=== PATIENT | male | born 1945 | race Native Hawaiian/Other Pacific Islander ===

== ENCOUNTER 2017-11-12 19:56 | Emergency (ER) | payer MEDICARE, OTHER ==
[~2017-11-12] VITALS: Ht 162.6 cm; Wt 65.9 kg
[2017-11-12] MEDS ORDERED: ATOR10TA84 PO (20:35)
[2017-11-12] MEDS ORDERED: CHOL200016 PO (20:35)
[2017-11-12] MEDS ORDERED: PRAZ5 PO (20:36)
[2017-11-12] MEDS ORDERED: ACETAMINOPHEN/CODEINE 300-30 MG TABLET PO ONE (22:30)
[2017-11-12] MEDS ORDERED: IBUPROFEN 600 MG TABLET PO ONE (22:30)
[2017-11-12 23:40] VITALS: BP 138/92
== END 2017-11-12 23:42 | disposition home or self-care (01) ==
LOC: EMS 19:58
DX: S20.212A Contusion of left front wall of thorax, initial encounter (principal); E78.00 Pure hypercholesterolemia, unspecified; I10 Essential (primary) hypertension; V43.52XA Car driver injured in collision with other type car in traffic accident, initial encounter; Y93.89 Activity, other specified; Y92.410 Unspecified street and highway as the place of occurrence of the external cause; Y99.8 Other external cause status
CPT/HCPCS: 71100; 93005; 99284